=== PATIENT | female | born 1970 | race Caucasian/White ===

== ENCOUNTER 2017-08-29 08:09 | Emergency (ER) | payer BC, OTHER ==
[2017-08-29 08:20] VITALS: BP 162/96
--- NOTE | 2017-08-29 08:21 | EDM.PDOC ---
ED HPI GENERAL MEDICAL PROBLEM - General Chief Complaint: Lower Extremity Injury/Pain Stated Complaint: left hip pain Time Seen by Provider: 08/29/17 08:21 Source of Information: Reports: Patient, RN, RN Notes Reviewed History Limitations: Reports: No Limitations - History of Present Illness INITIAL COMMENTS - FREE TEXT/NARRATIVE: Pt presents to the ER with c/o left hip pain. She states the pain began about 1 week to 10 days ago. She denies any falls, trauma, or injury. She states she was standing a lot at work and thought that was what was causing the pain. She states she went to the chiropractor on Friday. She states the pain has intensified since then. She states she has difficulty getting out of bed, sitting and getting up from the stool. Pt denies numbness or tingling, but states the pain radiates down the left thigh. She describes the pain as a "bad cramp" 1/10 at it's best, and 9/10 at it's worst. She states she has used biofreeze, ibuprofen, and acetaminophen for the pain with some relief. 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 Left Lower Back Pain Score (Numeric/FACES): 9 - Related Data Allergies Allergy/AdvReac Type Severity Reaction Status Date / Time lisinopril Allergy Cannot Verified 08/29/17 08:20 Remember Home Meds: Home Meds Chlorthalidone 25 mg PO DAILY 12/01/15 [History] Irbesartan [Avapro] 150 mg PO DAILY 12/01/15 [History] Metoprolol Succinate [Toprol XL] 100 mg PO DAILY 12/01/15 [History] Potassium Chloride 40 meq PO DAILY 12/01/15 [History] hydrALAZINE HCl [Hydralazine HCl] 25 mg PO TID 12/01/15 [History] Biotin 10,000 mcg PO DAILY 08/02/16 [History] Magnesium 250 mg PO DAILY 08/02/16 [History] amLODIPine [Norvasc] 10 mg PO DAILY 08/02/16 [History] Past Medical History HEENT History: Reports: Impaired Vision Cardiovascular History: Reports: Hypertension Respiratory History: Reports: Sleep Apnea Gastrointestinal History: Reports: GERD 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: - Infectious Disease History 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 - Past Surgical History HEENT Surgical History: Reports: None Cardiovascular Surgical History: Reports: None Respiratory Surgical History: Reports: None GI Surgical History: Reports: None Social & Family History - Family History Family Medical History: Noncontributory - Tobacco Use Smoking Status *Q: Current Some Day Smoker Years of Tobacco use: 30 Packs/Tins Daily: 0.1 - Alcohol Use Days Per Week of Alcohol Use: 3 Number of Drinks Per Day: 3 Total Drinks Per Week: 9 - Recreational Drug Use Recreational Drug Use: No Review of Systems - Review of Systems Review Of Systems: ROS reveals no pertinent complaints other than HPI. ED EXAM, GENERAL - Physical Exam Exam: See Below Exam Limited By: No Limitations General Appearance: Alert, WD/WN, Moderate Distress Eye Exam: Bilateral Eye: EOMI, Normal Inspection Ears: Normal External Exam, Hearing Grossly Normal Nose: Normal Inspection Throat/Mouth: Normal Inspection, Normal Voice, No Airway Compromise Head: Atraumatic, Normocephalic Neck: Normal Inspection, Supple, Non-Tender, Full Range of Motion Respiratory/Chest: No Respiratory Distress, Lungs Clear, Normal Breath Sounds, No Accessory Muscle Use, Chest Non-Tender Cardiovascular: Normal Peripheral Pulses, Regular Rate, Rhythm, No Edema, No Gallop, No JVD, No Murmur, No Rub Peripheral Pulses: 2+: Radial (L), Radial (R), Dorsalis Pedis (L), Dorsalis Pedis (R) GI/Abdominal: Normal Bowel Sounds, Soft, Non-Tender, No Organomegaly, No Distention, No Abnormal Bruit, No Mass (Female) Exam: Deferred Rectal (Female) Exam: Deferred Back Exam: Decreased Range of Motion Extremities: Normal Inspection, No Pedal Edema, Limited Range of Motion (left leg) Neurological: Alert, Oriented, CN II-XII Intact, Normal Cognition, No Motor/ Sensory Deficits. 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 See rad report Departure - Departure Time of Disposition: 09:12 Disposition: Home, Self-Care 01 Condition: Fair Clinical Impression: Reactive arthritis of left hip - Discharge Information Instructions: Hip Pain, Arthritis Forms: ED Department Discharge Additional Instructions: RX: Medrol dose pack, Diclofenac Rest, ice, heat Follow up with your primary care facility if no improvement.
--- NOTE | 2017-08-29 08:56 | CR ---
Clinical history: 47-year-old female left hip pain (no injury). Interpretation: AP pelvis/hips and AP/frog lateral views of the left hip reveal evidence of apparent lower lumbar disc disease with associated hypertrophic reactive arthritis. Homogeneous normal bone density. *No sign of pathologic skeletal lesion, pelvic or either hip fractur e/dislocation. Symmetric spacing normal-appearing SI and hip joint without arthritic degenerative change.
== END 2017-08-29 09:20 | disposition home or self-care (01) ==
LOC: DL.ED 08:09
DX: M02.35 Reiter's disease, hip (principal); I10 Essential (primary) hypertension; F17.210 Nicotine dependence, cigarettes, uncomplicated; Z79.899 Other long term (current) drug therapy; Z88.8 Allergy status to other drugs, medicaments and biological substances
CPT/HCPCS: 99283

== ENCOUNTER 2022-11-04 21:48 | Emergency (ER) | payer OTHER ==
[2022-11-04 22:13] VITALS: BP 149/98; PULSE 77
[2022-11-04] MEDS ORDERED: Sodium Chloride 0.9% 1,000 ML IV ONE (22:51)
[2022-11-04] MEDS ORDERED: Ondansetron 4 MG/2 ML SDV IVPUSH ONE (22:52)
[2022-11-04 23:36] LABS: ANION GAP 18.1 mEq/L (7-13)
[2022-11-05] MEDS ORDERED: Sodium Chloride 0.9% 1,000 ML IV ONE (00:04)
[2022-11-05] MEDS ORDERED: Famotidine 20 MG/2 ML SDV IVPUSH ONE (00:04)
[2022-11-05] MEDS ORDERED: Cephalexin 500 MG Cap PO ONE (00:54)
== END 2022-11-05 01:39 | disposition home or self-care (01) ==
LOC: DL.ED 21:48
DX: E86.0 Dehydration (principal); K52.9 Noninfective gastroenteritis and colitis, unspecified; E87.1 Hypo-osmolality and hyponatremia; R74.8 Abnormal levels of other serum enzymes; N39.0 Urinary tract infection, site not specified; R31.9 Hematuria, unspecified; I10 Essential (primary) hypertension; Z72.0 Tobacco use; Z79.899 Other long term (current) drug therapy; Z88.8 Allergy status to other drugs, medicaments and biological substances
CPT/HCPCS: 36415; 80053; 81001; 82947; 85025; 87086; 87088; 87186; 96361; 96374; 96375; 99284; 99284-25; A9270-GY; J2405; J3490; J7030

== ENCOUNTER 2022-11-07 09:48 | Inpatient (IN) | payer OTHER ==
[2022-11-07 11:05] LABS: ANION GAP 19.4 mEq/L (7-13)
[2022-11-07 11:17] LABS: CORONAVIRUS COVID-19 NAA NEGATIVE (NEGATIVE); RESPIRATORY SYNCYTIAL VIR NAA NEGATIVE (NEGATIVE)
[2022-11-07] MEDS ORDERED: Sodium Chloride 0.9% 1,000 ML IV ONE ×2 (11:24→11:43)
[2022-11-07] MEDS ORDERED: Magnesium Sulfate/Water 2 GM in Premix Bag 1 BAG IV ONE (11:43)
[2022-11-07 11:55] LABS: AMPHETAMINES,URINE NEGATIVE (NEGATIVE); BARBITURATES,URINE NEGATIVE (NEGATIVE); BENZODIAZEPINE,URINE NEGATIVE (NEGATIVE); MDMA (ECSTASY), URINE NEGATIVE (NEGATIVE); METHADONE,URINE NEGATIVE (NEGATIVE); METHAMPHETAMINES,URINE NEGATIVE (NEGATIVE); OPIATES,URINE NEGATIVE (NEGATIVE); OXYCODONE,URINE NEGATIVE (NEGATIVE); PHENCYCLIDINE,URINE NEGATIVE (NEGATIVE); TCA,URINE NEGATIVE (NEGATIVE)
[2022-11-07] MEDS ORDERED: Acetaminophen 500 MG Tab PO ONE (13:06)
[2022-11-07] MEDS ORDERED: Hydrocortisone Sodium Succinate 100 MG/2 ML SDV IVPUSH ONE (13:34)
[2022-11-07] MEDS ORDERED: Piperacillin/Tazobactam 3.375 GM in Sodium Chloride 0.9% 100 ML IV ONE ×2 (13:41→14:45)
[2022-11-07] MEDS ORDERED: Acetaminophen/HYDROcodone 325-5 MG Tab PO PRN (14:59)
[2022-11-07] MEDS ORDERED: Magnesium Hydroxide 400 MG/5 ML Susp 30 ML Cup PO PRN (14:59)
[2022-11-07] MEDS ORDERED: Acetaminophen 325 MG Tab PO PRN (14:59)
[2022-11-07] MEDS ORDERED: Sodium Chloride 0.9% 10 ML Syringe FLUSH PRN (14:59)
[2022-11-07] MEDS ORDERED: Polyethylene Glycol 3350 Powder 17 GM Packet PO PRN (14:59)
[2022-11-07] MEDS ORDERED: Albuterol/Ipratropium 3.0-0.5 MG/3 ML Neb Soln NEB PRN (14:59)
[2022-11-07] MEDS ORDERED: Ondansetron 4 MG/2 ML SDV IVPUSH PRN (14:59)
[2022-11-07] MEDS ORDERED: Bisacodyl 5 MG Tab PO PRN (14:59)
[2022-11-07] MEDS ORDERED: HYDROmorphone 0.5 MG/0.5 ML Syringe IVPUSH PRN (14:59)
[2022-11-07] MEDS ORDERED: guaiFENesin/Dextromethorphan 100-10 MG/5 ML Soln 5 ML Cup PO PRN (15:02)
[2022-11-07] MEDS ORDERED: Metoprolol Tartrate 5 MG/5 ML SDV IVPUSH PRN (15:04)
[2022-11-07] MEDS ORDERED: hydrALAZINE 20 MG/ML SDV IVPUSH PRN (15:04)
[2022-11-07] MEDS ORDERED: Midodrine 2.5 MG Tab PO PRN ×2 (15:04→19:08)
[2022-11-07] MEDS ORDERED: VANCOMYCIN IV SCH (15:15)
[2022-11-07] MEDS ORDERED: SODIUM CHLORIDE 0.9% IV SCH (15:15)
[2022-11-07] MEDS ORDERED: Acetaminophen/Butalbital/Caffeine 325-50-40 MG Tab PO PRN (16:03)
[2022-11-07] MEDS ORDERED: Acetaminophen/Butalbital/Caffeine 325-50-40 MG Tab PO ONE (16:03)
[2022-11-07] MEDS ORDERED: Glucagon,Human Recombinant 1 MG Vial IM PRN (16:21)
[2022-11-07] MEDS ORDERED: 50% Dextrose in Water 50 ML Syringe IVPUSH PRN (16:21)
[2022-11-07] MEDS: Insulin Lispro 100 Units/ML 3 ML Vial SUBCUT SCH (16:48)
[2022-11-07 18:50] LABS: ANION GAP 20.3 mEq/L (7-13)
[2022-11-07] MEDS ORDERED: Calcium Carbonate 500 MG Tab.Chew PO ONE (20:34)
[2022-11-07] MEDS: Saccharomyces Boulardii (Probiotic) 250 MG Cap PO SCH (21:16)
[2022-11-07] MEDS: Sodium Chloride 0.9% 10 ML Syringe FLUSH SCH (21:19)
[2022-11-07] MEDS: Hydrocortisone Sodium Succinate 100 MG/2 ML SDV IVPUSH SCH (21:20)
[2022-11-07] MEDS: Piperacillin/Tazobactam 3.375 GM in Sodium Chloride 0.9% 100 ML IV SCH (21:30)
[2022-11-08] MEDS: Piperacillin/Tazobactam 3.375 GM in Sodium Chloride 0.9% 100 ML IV SCH ×4 (03:37→20:44)
[2022-11-08] MEDS: Hydrocortisone Sodium Succinate 100 MG/2 ML SDV IVPUSH SCH ×3 (04:31→16:36)
[2022-11-08 07:24] LABS: ANION GAP 17.8 mEq/L (7-13)
[2022-11-08] MEDS ORDERED: Magnesium Sulfate/Water 2 GM in Premix Bag 1 BAG IV ONE (08:18)
[2022-11-08] MEDS: Insulin Lispro 100 Units/ML 3 ML Vial SUBCUT SCH ×3 (10:09→17:27)
[2022-11-08] MEDS: Saccharomyces Boulardii (Probiotic) 250 MG Cap PO SCH ×2 (10:09→20:44)
[2022-11-08] MEDS: Sodium Chloride 0.9% 10 ML Syringe FLUSH SCH ×2 (11:16→20:44)
[2022-11-08] MEDS ORDERED: BRIMONIDINE TARTRATE OP PRN (20:07)
[2022-11-08] MEDS ORDERED: Non-Formulary Medication 1 Each (Ammonium Lactate [Lac-Hydrin 12% Crm] 140 GM Tube) SCH (20:15)
[2022-11-08] MEDS ORDERED: Cyclobenzaprine 10 MG Tab PO PRN (21:00)
[2022-11-08] MEDS: Calcium Carbonate 500 MG Tab.Chew PO PRN (22:34)
[2022-11-08] MEDS ORDERED: GI Cocktail Oral Solution 30 ML PO ONE (23:05)
[2022-11-09] MEDS: Piperacillin/Tazobactam 3.375 GM in Sodium Chloride 0.9% 100 ML IV SCH ×4 (02:38→20:38)
[2022-11-09] MEDS: Calcium Carbonate 500 MG Tab.Chew PO PRN (02:38)
[2022-11-09 07:27] LABS: ANION GAP 13.8 mEq/L (7-13)
[2022-11-09] MEDS: Insulin Lispro 100 Units/ML 3 ML Vial SUBCUT SCH ×3 (08:04→17:41)
[2022-11-09] MEDS ORDERED: Hydrocortisone Sodium Succinate 100 MG/2 ML SDV IVPUSH SCH ×2 (09:00)
[2022-11-09] MEDS ORDERED: Non-Formulary Medication 1 Each (Dapagliflozin Propanediol [Farxiga] 10 MG Tablet) PO SCH (09:00)
[2022-11-09] MEDS: Sodium Chloride 0.9% 10 ML Syringe FLUSH SCH ×2 (09:32→20:38)
[2022-11-09] MEDS: Cholecalciferol (Vitamin D3) 25 MCG Tab PO SCH (09:36)
[2022-11-09] MEDS: Chlorthalidone 25 MG Tab PO SCH (09:36)
[2022-11-09] MEDS: DULoxetine 30 MG Cap PO SCH (09:36)
[2022-11-09] MEDS: Metoprolol Succinate 50 MG Tab.ER PO SCH (09:37)
[2022-11-09] MEDS: Spironolactone 25 MG Tab PO SCH (09:37)
[2022-11-09] MEDS: Saccharomyces Boulardii (Probiotic) 250 MG Cap PO SCH ×2 (09:38→20:38)
[2022-11-09] MEDS ORDERED: Potassium Chloride 10 MEQ Tab.ER PO ONE (11:00)
[2022-11-09] MEDS ORDERED: Fluticasone NASAL Spray 16 GM Bottle NASBOTH PRN (21:00)
[2022-11-10] MEDS: Piperacillin/Tazobactam 3.375 GM in Sodium Chloride 0.9% 100 ML IV SCH ×2 (02:46→08:40)
[2022-11-10 07:13] LABS: ANION GAP 15.1 mEq/L (7-13)
[2022-11-10] MEDS ORDERED: predniSONE 20 MG Tab PO SCH (08:00)
[2022-11-10] MEDS ORDERED: Fludrocortisone 0.1 MG Tab PO SCH (08:00)
[2022-11-10] MEDS ORDERED: Potassium Chloride 10 MEQ Tab.ER PO SCH (08:00)
[2022-11-10 08:30] VITALS: PULSE 74
[2022-11-10] MEDS: Sodium Chloride 0.9% 10 ML Syringe FLUSH SCH (08:40)
[2022-11-10] MEDS: Saccharomyces Boulardii (Probiotic) 250 MG Cap PO SCH (08:43)
[2022-11-10] MEDS: DULoxetine 30 MG Cap PO SCH (08:43)
[2022-11-10] MEDS: Metoprolol Succinate 50 MG Tab.ER PO SCH (08:44)
[2022-11-10] MEDS: Spironolactone 25 MG Tab PO SCH (08:44)
[2022-11-10] MEDS: Chlorthalidone 25 MG Tab PO SCH (08:45)
[2022-11-10] MEDS: Cholecalciferol (Vitamin D3) 25 MCG Tab PO SCH (08:45)
[2022-11-10] MEDS: Insulin Lispro 100 Units/ML 3 ML Vial SUBCUT SCH (08:46)
[2022-11-10 08:52] VITALS: BP 109/50
[2022-11-14] MEDS ORDERED: Albumin 25% 12.5 GM in Premix Bag 1 BAG IV ONE (03:17)
== END 2022-11-10 12:00 | disposition home or self-care (01) | DRG 643 ==
LOC: DL.ED 09:48 → DL.MS 14:15 → UNDOADMIN 14:15 → DL.MS 11-09 13:52
PROVIDERS: ADMIT Internal Medicine; ATTEND Internal Medicine
DX: E27.2 Addisonian crisis (principal); G93.41 Metabolic encephalopathy; N39.0 Urinary tract infection, site not specified; E87.1 Hypo-osmolality and hyponatremia; N17.9 Acute kidney failure, unspecified; E87.20 Acidosis, unspecified; E27.40 Unspecified adrenocortical insufficiency; I10 Essential (primary) hypertension; K21.9 Gastro-esophageal reflux disease without esophagitis; G47.33 Obstructive sleep apnea (adult) (pediatric); H54.7 Unspecified visual loss; E83.42 Hypomagnesemia; M79.7 Fibromyalgia; K52.9 Noninfective gastroenteritis and colitis, unspecified; E66.01 Morbid (severe) obesity due to excess calories; Z20.822 Contact with and (suspected) exposure to COVID-19; E87.8 Other disorders of electrolyte and fluid balance, not elsewhere classified; E83.52 Hypercalcemia; E11.65 Type 2 diabetes mellitus with hyperglycemia; E86.0 Dehydration; Z79.899 Other long term (current) drug therapy; Z98.890 Other specified postprocedural states; Z68.37 Body mass index [BMI] 37.0-37.9, adult
CPT/HCPCS: 0241U; 36415; 70450; 74176; 80053; 80202; 80305-QW; 80307; 81001; 82150; 82306; 82533; 82947; 83605; 83690; 83735; 84145; 84439; 84443; 84484; 85025; 86140; 86308; 87040; 93005; 97161-GP; 97165-GO; 99233; 99238; A9270-GY; J1720; J1815-GY; J2405; J2543; J3370; J3475; J3490; J7030; J7050; J7512

== ENCOUNTER 2022-11-20 11:37 | Emergency (ER) | payer OTHER ==
[2022-11-20] MEDS ORDERED: Ondansetron 4 MG/2 ML SDV IV ONE (12:04)
[2022-11-20] MEDS ORDERED: Sodium Chloride 0.9% 10 ML Syringe FLUSH PRN (12:04)
[2022-11-20] MEDS ORDERED: Sodium Chloride 0.9% 1,000 ML IV ONE ×2 (12:04→12:55)
[2022-11-20] MEDS ORDERED: Famotidine 20 MG/2 ML SDV IVPUSH ONE (12:05)
[2022-11-20] MEDS ORDERED: Hydrocortisone Sodium Succinate 100 MG/2 ML SDV IVPUSH ONE (12:05)
[2022-11-20 12:41] LABS: PTT,PARTIAL THROMBOPLSTIN TIME 23.1 SEC (22.0-34.0)
[2022-11-20 12:44] LABS: ANION GAP 20.1 mEq/L (7-13)
[2022-11-20 16:12] VITALS: PULSE 73
[2022-11-20 16:16] VITALS: BP 131/93
== END 2022-11-20 15:37 | disposition home or self-care (01) ==
LOC: DL.ED 11:37
DX: E86.0 Dehydration (principal); E27.2 Addisonian crisis; I10 Essential (primary) hypertension; Z72.0 Tobacco use; Z88.8 Allergy status to other drugs, medicaments and biological substances; Z79.899 Other long term (current) drug therapy
CPT/HCPCS: 36415; 80053; 81001; 82150; 83605; 83690; 83735; 84484; 85025; 85379; 85610; 85730; 87086; 87088; 87186; 93005; 93010; 96361; 96374; 96375; 99284; 99285; J1720; J2405; J3490; J7030

== ENCOUNTER 2022-11-25 17:24 | Observation (INO) | payer OTHER ==
[2022-11-25 14:21] LABS: ANION GAP 20.4 mEq/L (7-13); CHLORIDE,CL 97 mmol/L (98-107); SODIUM,NA 135 mmol/L (136-145)
[2022-11-25 14:22] LABS: ESTIMATED GFR 36 mL/min (>=60)
[2022-11-25 16:22] LABS: CORONAVIRUS COVID-19 NAA NEGATIVE (NEGATIVE); RESPIRATORY SYNCYTIAL VIR NAA NEGATIVE (NEGATIVE)
[~2022-11-25 17:24] MED LIST: Hydrocortisone Sodium Succinate 100 MG/2 ML SDV IVPUSH ONE; Magnesium Sulfate/Water 2 GM in Premix Bag 1 BAG IV ONE; Pantoprazole 40 MG Vial IVPUSH ONE; Sodium Chloride 0.9% 1,000 ML IV ONE
[2022-11-25] MEDS ORDERED: Ondansetron 4 MG/2 ML SDV IVPUSH PRN (18:59)
[2022-11-25] MEDS ORDERED: Acetaminophen 325 MG Tab PO PRN (18:59)
[2022-11-25] MEDS ORDERED: Docusate Sodium 100 MG Cap PO PRN (18:59)
[2022-11-25] MEDS ORDERED: Cyclobenzaprine 10 MG Tab PO PRN (19:06)
[2022-11-25] MEDS ORDERED: 50% Dextrose in Water 50 ML Syringe IVPUSH PRN (19:06)
[2022-11-25] MEDS ORDERED: Glucagon,Human Recombinant 1 MG Vial IM PRN (19:06)
[2022-11-25] MEDS: Sodium Chloride 0.9% 1,000 ML IV SCH (20:43)
[2022-11-25] MEDS: Pantoprazole 40 MG Vial IVPUSH SCH (21:47)
[2022-11-25] MEDS: Insulin Lispro 100 Units/ML 3 ML Vial SUBCUT SCH (21:48)
[2022-11-25] MEDS: Hydrocortisone Sodium Succinate 100 MG/2 ML SDV IVPUSH SCH (21:48)
[2022-11-26] MEDS: Sodium Chloride 0.9% 1,000 ML IV SCH (04:45)
[2022-11-26] MEDS: Hydrocortisone Sodium Succinate 100 MG/2 ML SDV IVPUSH SCH (05:00)
[2022-11-26 07:37] LABS: ANION GAP 16.4 mEq/L (7-13)
[2022-11-26] MEDS: Insulin Lispro 100 Units/ML 3 ML Vial SUBCUT SCH (07:41)
[2022-11-26] MEDS ORDERED: predniSONE 20 MG Tab PO SCH (08:00)
[2022-11-26] MEDS: Pantoprazole 40 MG Vial IVPUSH SCH (08:03)
[2022-11-26 08:23] VITALS: BP 131/68; PULSE 84
[2022-11-26] MEDS ORDERED: Metoprolol Succinate 50 MG Tab.ER PO SCH (09:00)
[2022-11-26] MEDS ORDERED: Enoxaparin 40 MG/0.4 ML Syringe SUBCUT SCH (09:00)
[2022-11-26] MEDS ORDERED: Cholecalciferol (Vitamin D3) 25 MCG Tab PO SCH (09:00)
[2022-11-26] MEDS ORDERED: DULoxetine 30 MG Cap PO SCH (09:00)
[2022-11-26] MEDS ORDERED: predniSONE 5 MG Tab PO SCH (09:00)
== END 2022-11-26 11:00 | disposition home or self-care (01) ==
LOC: DL.ED 17:24 → INTOOBSV 17:54 → DL.MS 17:54
PROVIDERS: ADMIT Internal Medicine; ATTEND Internal Medicine
DX: E86.1 Hypovolemia (principal); R42 Dizziness and giddiness; N17.9 Acute kidney failure, unspecified; R74.02 Elevation of levels of lactic acid dehydrogenase [LDH]; K21.9 Gastro-esophageal reflux disease without esophagitis; I10 Essential (primary) hypertension; E11.9 Type 2 diabetes mellitus without complications; Z98.890 Other specified postprocedural states; E66.9 Obesity, unspecified; Z88.8 Allergy status to other drugs, medicaments and biological substances; Z79.899 Other long term (current) drug therapy; Z20.822 Contact with and (suspected) exposure to COVID-19; Z87.891 Personal history of nicotine dependence
CPT/HCPCS: 0241U; 36415; 80048; 80053; 80307; 81001; 82150; 82947; 83605; 83690; 83735; 84443; 84484; 85025; 86140; 87040; 87086; 87088; 87186; 96361; 96365; 96375; 99222; 99239; 99285-25; A9270-GY; C9113; J1650; J1720; J3475; J7030; J7512